=== PATIENT | male | born 1985 | race Caucasian/White ===

== ENCOUNTER → 2016-05-03 | Outpatient (CLI) | payer BC | END | disposition home or self-care (01) | LOC: MW.CHFP 15:42 | PROVIDERS: ATTEND Nurse Practitioner Family | DX: Z78.9 Other specified health status (principal) | CPT/HCPCS: 36415; 87800 ==

== ENCOUNTER 2019-06-27 16:51 | Emergency (ER) | payer BC ==
[2019-06-27] MEDS ORDERED: Alum Hydrox/Mag Hydrox/Simeth 15 ML, Metoclopramide 5 MG, Lidocaine 2% 5 ML PO ONE ×3 (17:08)
--- NOTE | 2019-06-27 17:09 | EDM.PDOC ---
ED [facility] GENERAL MEDICAL PROBLEM - General Chief Complaint: Chest Pain Stated Complaint: CHEST PAIN Time Seen by Provider: 06/27/19 16:59 Source of Information: Reports: Patient History Limitations: Reports: No Limitations - History of Present Illness INITIAL COMMENTS - FREE TEXT/NARRATIVE: This 33 year old male is admitted to the ED with a chief complaint of chest pain over the past three to four weeks. He states that the pain is sharp to dull and usually last for 60 to 90 minutes. He states over the past two days it seem to be more often. He complains of intermittent pain across his shoulders. He denies any SOB, nausea or vomiting. No sweating. He denies any history of heart problems. He denies any other symptoms or complaints. He has a possible history of hypertension but has not been treated. No history of diabetes mellitus or hyperlipidemias. chest Pain Score (Numeric/FACES): 2 - Related Data Allergies Allergy/AdvReac Type Severity Reaction Status Date / Time No Known Allergies Allergy Verified 06/27/19 17:08 Home Meds: Home Meds Pantoprazole Sodium [Protonix] 40 mg PO DAILY 30 Days #30 tablet. 06/27/19 [Rx ] ED ROS GENERAL - Review of Systems Review Of Systems: Comprehensive ROS is negative, except as noted in HPI. ED EXAM, GENERAL - Physical Exam Exam: See Below Exam Limited By: No Limitations General Appearance: Alert, WD/WN, No Apparent Distress Ears: Normal External Exam, Normal TMs Nose: Normal Inspection, Normal Mucosa Throat/Mouth: Normal Inspection, Normal Oropharynx Head: Atraumatic, Normocephalic Neck: Normal Inspection, Supple, Full Range of Motion Respiratory/Chest: No Respiratory Distress, Lungs Clear, Normal Breath Sounds, No Accessory Muscle Use Cardiovascular: Normal Peripheral Pulses, Regular Rate, Rhythm, No Edema, No JVD , No Murmur, No Rub Peripheral Pulses: 3+: Dorsalis Pedis (L), 4+: Carotid (L), Carotid (R), Radial (L), Radial (R), Dorsalis Pedis (R) GI/Abdominal: Normal Bowel Sounds, Soft, Non-Tender, No Organomegaly, No Abnormal Bruit (Male) Exam: Deferred Rectal (Males) Exam: Deferred Back Exam: Normal Inspection, Full Range of Motion. No: CVA Tenderness (L), CVA Tenderness (R) Extremities: Normal Inspection, Normal Range of Motion, Non-Tender, No Pedal Edema, Normal Capillary Refill Neurological: Alert, Oriented (times 4), CN II-XII Intact, Normal Reflexes, No Motor/Sensory Deficits Psychiatric: Normal Affect, Normal Mood Skin Exam: Warm, Dry, Intact, Normal Color, No Rash Course - Vital Signs Text/Narrative:: I reviewed all of this patients diagnostic test and his ECG. His HEART score is a 0. I discussed this with the patient as well. He will be discharged. He agrees with the discharge plan. Last Recorded V/S: Last Vital Signs Temp 97.9 F 06/27/19 16:51 Pulse 64 06/27/19 17:45 Resp 16 06/27/19 17:45 BP 118/76 06/27/19 17:45 Pulse Ox 96 06/27/19 17:45 - Orders/Labs/Meds Labs: Laboratory Tests 06/27/19 06/27/19 Range/Units 17:06 17:06 WBC 7.18 (4.0-11.0) K/uL RBC 4.92 (4.50-5.90) M/uL Hgb 14.6 (13.0-17.0) g/dL Hct 43.9 (38.0-50.0) % MCV 89.2 (80.0-98.0) fL MCH 29.7 (27.0-32.0) pg MCHC 33.3 (31.0-37.0) g/dL RDW Std Deviation 42.3 (28.0-62.0) fl RDW Coeff of Jayde 13 (11.0-15.0) % Plt Count 249 (150-400) K/uL MPV 9.50 (7.40-12.00) fL Neut % (Auto) 61.2 (48.0-80.0) % Lymph % (Auto) 28.1 (16.0-40.0) % [place] % (Auto) 7.9 (0.0-15.0) % Eos % (Auto) 2.4 (0.0-7.0) % Baso % (Auto) 0.4 (0.0-1.5) % Neut # (Auto) 4.4 (1.4-5.7) K/uL Lymph # (Auto) 2.0 (0.6-2.4) K/uL [place] # (Auto) 0.6 (0.0-0.8) K/uL Eos # (Auto) 0.2 (0.0-0.7) K/uL Baso # (Auto) 0.0 (0.0-0.1) K/uL Nucleated RBC % 0.0 /100WBC Nucleated RBCs # 0 K/uL Sodium 136 (136-148) mmol/L Potassium 4.0 (3.5-5.1) mmol/L Chloride 101 (98-107) mmol/L Carbon Dioxide 27.0 (21.0-32.0) mmol/L BUN 19 H (7.0-18.0) mg/dL Creatinine 1.1 (0.8-1.3) mg/dL Est Cr Clr Drug Dosing 100.78 mL/min Estimated GFR (MDRD) > 60.0 ml/min Glucose 91 (74-106) mg/dL Calcium 8.9 (8.5-10.1) mg/dL Total Bilirubin 0.4 (0.2-1.0) mg/dL AST 25 (15-37) IU/L ALT 52 (14-63) IU/L Alkaline Phosphatase 37 L (46-116) U/L Troponin I < 0.050 (0.000-0.056) ng/mL Total Protein 7.4 (6.4-8.2) g/dL Albumin 4.4 (3.4-5.0) g/dL Globulin 3.0 (2.6-4.0) g/dL Albumin/Globulin Ratio 1.5 (0.9-1.6) Meds: Medications Discontinued Medications Generic Name Dose Route Start Last Admin Trade Name Freq PRN Reason Stop Dose Admin Al Hydroxide/Mg Hydroxide 15 0 ml 06/27/19 17:08 06/27/19 17:16 ml/ Metoclopramide HCl 5 mg/ PO 06/27/19 17:09 1 each Lidocaine HCl 5 ml ONETIME ONE Administration Departure - Departure Time of Disposition: 17:54 Disposition: Home, Self-Care 01 Condition: Good Clinical Impression: Atypical chest pain Instructions: Nonspecific Chest Pain, Adult, [id number] Forms: ED Department Discharge Additional Instructions: Take all medications as directed. Follow up with your PCP in the next two to four days. Rest for the next 24 hours. Return to the ED if your condition gets worse or should you have any questions or concerns. The following information is given to patients seen in the emergency department who are being discharged to home. This information is to outline your options for follow-up care. We provide all patients seen in our emergency department with a follow-up referral. The need for follow-up, as well as the timing and circumstances, are variable depending upon the specifics of your emergency department visit. If you don't have a primary care physician on staff, we will provide you with a referral. We always advise you to contact your personal physician following an emergency department visit to inform them of the circumstance of the visit and for follow-up with them and/or the need for any referrals to a consulting specialist. The emergency department will also refer you to a specialist when appropriate. This referral assures that you have the opportunity for follow-up care with a specialist. All of these measure are taken in an effort to provide you with optimal care, which includes your follow-up. Under all circumstances we always encourage you to contact your private physician who remains a resource for coordinating your care. When calling for follow-up care, please make the office aware that this follow-up is from your recent emergency room visit. If for any reason you are refused follow-up, please contact the [facility] Emergency Department at and asked to speak to the emergency department charge nurse. Sepsis Event Note - Focused Exam Vital Signs: Vital Signs Temp Pulse Resp BP Pulse Ox 06/27/19 17:45 64 16 118/76 96 06/27/19 17:15 64 17 124/68 97 06/27/19 16:51 97.9 F 82 18 140/81 97 Date Exam was Performed: 06/27/19 Time Exam was Performed: 17:51
--- NOTE | 2019-06-27 17:24 | CR ---
INDICATION: CHEST PAIN INDICATION: Chest pain. TECHNIQUE: Chest 1 view. COMPARISON: None FINDINGS: Cardiovascular and mediastinum: Heart size and vasculature are normal in caliber and appearance. Mediastinum is within normal limits. Lungs and pleural space: Lungs are clear. No sign of infiltrate or mass. No sign of pleural effusion. No pneumothorax. Bones and soft tissues: No significant findings. IMPRESSION: Lungs are clear. Dictated by Pablo Gutierrez MD @ 06/27/2019 5:23:06 PM Dictated by: Pablo Gutierrez MD @ 06/27/2019 17:23:20 (Electronically Signed)
[2019-06-27 17:39] LABS: BLOOD UREA NITROGEN,BUN 19 mg/dL (7.0-18.0); CHLORIDE,CL 101 mmol/L (98-107); GLUCOSE RANDOM 91 mg/dL (74-106); SODIUM,NA 136 mmol/L (136-148)
[2019-06-27] MEDS ORDERED: Pantoprazole 40 MG Tab.CR PO SCH (18:00)
== END 2019-06-27 18:09 | disposition home or self-care (01) ==
LOC: MW.ED 16:51
DX: R07.89 Other chest pain (principal)
CPT/HCPCS: 36415; 71045; 80053; 84484; 85025; 93005; 99285; A9270; 99283

== ENCOUNTER 2019-11-22 08:06 | Observation (INO) | payer BC, OTHER ==
[2019-11-22] MEDS ORDERED: Ondansetron 4 MG/2 ML SDV IVPUSH ONE (08:22)
[2019-11-22] MEDS ORDERED: Sodium Chloride 0.9% 10 ML Syringe FLUSH PRN (08:22)
[2019-11-22] MEDS ORDERED: Sodium Chloride 0.9% 2.5 ML Syringe FLUSH PRN (08:22)
[2019-11-22] MEDS ORDERED: fentaNYL 50 MCG/ML SDV IVPUSH ONE ×2 (08:32→09:55)
--- NOTE | 2019-11-22 08:35 | EDM.PDOC ---
ED [facility] GENERAL MEDICAL PROBLEM - General Chief Complaint: Abdominal Pain Stated Complaint: abdominal pain Time Seen by Provider: 11/22/19 08:15 Source of Information: Reports: Patient History Limitations: Reports: No Limitations - History of Present Illness INITIAL COMMENTS - FREE TEXT/NARRATIVE: There is a very pleasant 33-year-old male with no past medical history presenting with abdominal pain and nausea. He states that around 6:00 this morning, he woke up feeling nauseated. He shortly thereafter developed periumbilical abdominal pain that then migrated to the right lower quadrant. Pain was initially intermittent but is now constant. Nothing makes it better or worse. No history of prior pain like this. He took a medication for constipation at home without relief. Denies any fever, chills, vomiting, hematemesis, diarrhea, bloody stools, dysuria, urinary frequency, or back/flank pain. ROS: A 10-point review of systems was negative, except as noted in the HPI (or in the ROS section of this note). Past medical history: Reviewed, no additional pertinent history. Surgical history: Reviewed in system, no additional pertinent history. Social history: Reviewed in system, no additional pertinent history. Family history: Reviewed in system, no additional pertinent history. PHYSICAL EXAM Vital signs reviewed. Nursing notes reviewed. Constitutional: Awake, alert, non-distressed. Head: Normocephalic, atraumatic. Eyes: EOMI, conjunctiva normal, no discharge, no scleral icterus. Ears, Nose, Throat: External ears and nose normal, moist oral mucosa. Cardiovascular: 2+ radial pulse, capillary refill less than 2 seconds. Pulmonary: normal work of breathing, no accessory muscle use. Abdomen/GI: Soft, moderate right lower quadrant tenderness with some guarding, nondistended, no guarding or rigidity, no masses. No CVA tenderness. Musculoskeletal: No deformities. Integumentary: Appropriate color for ethnicity, warm, dry, no pallor or jaundice, no rash. Neurologic: Alert, answering questions appropriately, normal speech, no facial droop, moving all extremities well. Psychiatric: Appropriate mood and affect, normal thought process. mid abdomen, below umbilicus Pain Score (Numeric/FACES): 8 - Related Data Allergies Allergy/AdvReac Type Severity Reaction Status Date / Time No Known Allergies Allergy Verified 11/22/19 08:17 Home Meds: Home Meds . [No Known Home Meds] 11/22/19 [History] Past Medical History HEENT History: Reports: None Cardiovascular History: Reports: Hypertension, Other (See Below) Other Cardiovascular History: states he was given blood pressure medication in the past "but im not good at taking it" Musculoskeletal History: Reports: None - Infectious Disease History Infectious Disease History: Reports: Chicken Pox, Novel Coronavirus - Past Surgical History HEENT Surgical History: Reports: Tonsillectomy Cardiovascular Surgical History: Reports: None Musculoskeletal Surgical History: Reports: Arthroscopic Knee, Other (See Below) Other Musculoskeletal Surgeries/Procedures:: R knee Social & Family History - Family History Family Medical History: Noncontributory - Tobacco Use Smoking Status *Q: Never Smoker - Caffeine Use Caffeine Use: Reports: Coffee - Recreational Drug Use Recreational Drug Use: No ED ROS GENERAL - Review of Systems Review Of Systems: See Below ED EXAM, GI/ABD - Physical Exam Exam: See Below Course - Vital Signs Text/Narrative:: Patient hemodynamically stable, afebrile, well-appearing, looks nontoxic. Differential diagnosis includes but is not limited to: appendicitis, testicular torsion, inguinal hernia (umbilical vs direct vs indirect), abdominal wall hernia, constipation, rectus abdominus muscle strain, mesenteric ischemia, cystitis, pyelonephritis, renal colic, aortic aneurysm, gastritis, mesenteric thrombus, strangulated bowel, small bowel obstruction, IBD, and many others. 0834: Ordered labs, fentanyl, Zofran, urinalysis, CT scan of the abdomen/pelvis. Suspicious for appendicitis, kidney stone less likely. NPO. 0939: Resting comfortably. CBC shows leukocytosis with neutrophilic predominance. Normal lactate. Normal electrolytes and renal function. Mild ALT and alkaline phosphatase elevations. Normal lipase. Urinalysis shows trace ketones, no blood or evidence of infection. Awaiting radiology read of CT scan. 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 Ordered IV morphine sulfate and air ertapenem. Consulted general surgeon Dr. Levy Avalos who will evaluate the patient. 1305: Dr. Avalos saw the patient in the ER. We will plan to go to the operating room for appendectomy. Given additional analgesic medications. Transferred to the OR in good condition. Last Recorded V/S: Last Vital Signs Temp 36.4 C 11/22/19 13:25 Pulse 97 11/22/19 13:25 Resp 17 11/22/19 13:25 BP 132/76 11/22/19 13:25 Pulse Ox 100 11/22/19 13:25 - Orders/Labs/Meds Orders: Active Orders 24 hr Category Date Time Status Admission Status [Patient Status] [ADT] Stat ADT 11/22/19 10:24 Active Pulse Oximetry [RC] ASDIRECTED Care 11/22/19 08:22 Active Nothing Per Oral Diet [DIET] Diet 11/22/19 Breakfast Active Acetaminophen [Ofirmev] 1,000 mg Med 11/22/19 13:16 Active Premix Bag 1 bag IV Q6H Sodium Chloride 0.9% [Saline Flush] Med 11/22/19 08:22 Active 10 ml FLUSH ASDIRECTED PRN Sodium Chloride 0.9% [Saline Flush] Med 11/22/19 08:22 Active 2.5 ml FLUSH ASDIRECTED PRN fentaNYL [Sublimaze] Med 11/22/19 13:16 Active 50 mcg IVPUSH Q5M PRN Saline Lock Insert [OM.PC] Stat Oth 11/22/19 08:23 Ordered Medication Orders Fentanyl (Sublimaze) 50 mcg IVPUSH Q5M PRN PRN Reason: Pain Acetaminophen 1,000 mg/ Premix 100 mls @ 400 mls/hr IV Q6H PRN PRN Reason: Pain Sodium Chloride (Saline Flush) 10 ml FLUSH ASDIRECTED PRN PRN Reason: Keep Vein Open Last Admin: 11/22/19 08:38 Dose: 10 ml Documented by: KATE Sodium Chloride (Saline Flush) 2.5 ml FLUSH ASDIRECTED PRN PRN Reason: Keep Vein Open Last Admin: 11/22/19 08:38 Dose: 2.5 ml Documented by: KATE Labs: Laboratory Tests 11/22/19 11/22/19 11/22/19 Range/Units 08:20 08:20 08:20 WBC 13.76 H (4.0-11.0) K/uL RBC 4.94 (4.50-5.90) M/uL Hgb 14.6 (13.0-17.0) g/dL Hct 44.2 (38.0-50.0) % MCV 89.5 (80.0-98.0) fL MCH 29.6 (27.0-32.0) pg MCHC 33.0 (31.0-37.0) g/dL RDW Std Deviation 41.6 (28.0-62.0) fl RDW Coeff of Jayde 13 (11.0-15.0) % Plt Count 223 (150-400) K/uL MPV 9.80 (7.40-12.00) fL Neut % (Auto) 85.5 H (48.0-80.0) % Lymph % (Auto) 9.2 L (16.0-40.0) % [place] % (Auto) 4.7 (0.0-15.0) % Eos % (Auto) 0.5 (0.0-7.0) % Baso % (Auto) 0.1 (0.0-1.5) % Neut # (Auto) 11.8 H (1.4-5.7) K/uL Lymph # (Auto) 1.3 (0.6-2.4) K/uL [place] # (Auto) 0.7 (0.0-0.8) K/uL Eos # (Auto) 0.1 (0.0-0.7) K/uL Baso # (Auto) 0.0 (0.0-0.1) K/uL Nucleated RBC % 0.0 /100WBC Nucleated RBCs # 0 K/uL Lactate 1.0 (0.20-2.00) mmol/L Sodium 140 (136-148) mmol/L Potassium 3.9 (3.5-5.1) mmol/L Chloride 104 (98-107) mmol/L Carbon Dioxide 26.5 (21.0-32.0) mmol/L BUN 19 H (7.0-18.0) mg/dL Creatinine 1.3 (0.8-1.3) mg/dL Est Cr Clr Drug Dosing 82.67 mL/min Estimated GFR (MDRD) > 60.0 ml/min Glucose 110 H (74-106) mg/dL Calcium 8.9 (8.5-10.1) mg/dL Total Bilirubin 0.4 (0.2-1.0) mg/dL AST 33 (15-37) IU/L ALT 75 H (14-63) IU/L Alkaline Phosphatase 40 L (46-116) U/L Total Protein 7.7 (6.4-8.2) g/dL Albumin 4.6 (3.4-5.0) g/dL Globulin 3.1 (2.6-4.0) g/dL Albumin/Globulin Ratio 1.5 (0.9-1.6) Lipase 122 (73-393) U/L Urine Color Urine Appearance Urine pH (5.0-8.0) Ur Specific [place] (1.001-1.035) Urine Protein (NEGATIVE) mg/dL Urine Glucose (UA) (NEGATIVE) mg/dL Urine Ketones (NEGATIVE) mg/dL Urine Occult Blood (NEGATIVE) Urine Nitrite (NEGATIVE) Urine Bilirubin (NEGATIVE) Urine Urobilinogen (<2.0) EU/dL Ur Leukocyte Esterase (NEGATIVE) SARS-CoV-2 RNA (KARTIK) (NEGATIVE) 11/22/19 11/22/19 Range/Units 08:31 10:27 WBC (4.0-11.0) K/uL RBC (4.50-5.90) M/uL Hgb (13.0-17.0) g/dL Hct (38.0-50.0) % MCV (80.0-98.0) fL MCH (27.0-32.0) pg MCHC (31.0-37.0) g/dL RDW Std Deviation (28.0-62.0) fl RDW Coeff of Jayde (11.0-15.0) % Plt Count (150-400) K/uL MPV (7.40-12.00) fL Neut % (Auto) (48.0-80.0) % Lymph % (Auto) (16.0-40.0) % [place] % (Auto) (0.0-15.0) % Eos % (Auto) (0.0-7.0) % Baso % (Auto) (0.0-1.5) % Neut # (Auto) (1.4-5.7) K/uL Lymph # (Auto) (0.6-2.4) K/uL [place] # (Auto) (0.0-0.8) K/uL Eos # (Auto) (0.0-0.7) K/uL Baso # (Auto) (0.0-0.1) K/uL Nucleated RBC % /100WBC Nucleated RBCs # K/uL Lactate (0.20-2.00) mmol/L Sodium (136-148) mmol/L Potassium (3.5-5.1) mmol/L Chloride (98-107) mmol/L Carbon Dioxide (21.0-32.0) mmol/L BUN (7.0-18.0) mg/dL Creatinine (0.8-1.3) mg/dL Est Cr Clr Drug Dosing mL/min Estimated GFR (MDRD) ml/min Glucose (74-106) mg/dL Calcium (8.5-10.1) mg/dL Total Bilirubin (0.2-1.0) mg/dL AST (15-37) IU/L ALT (14-63) IU/L Alkaline Phosphatase (46-116) U/L Total Protein (6.4-8.2) g/dL Albumin (3.4-5.0) g/dL Globulin (2.6-4.0) g/dL Albumin/Globulin Ratio (0.9-1.6) Lipase (73-393) U/L Urine Color YELLOW Urine Appearance CLEAR Urine pH 6.0 (5.0-8.0) Ur Specific [place] 1.025 (1.001-1.035) Urine Protein NEGATIVE (NEGATIVE) mg/dL Urine Glucose (UA) NEGATIVE (NEGATIVE) mg/dL Urine Ketones TRACE H (NEGATIVE) mg/dL Urine Occult Blood NEGATIVE (NEGATIVE) Urine Nitrite NEGATIVE (NEGATIVE) Urine Bilirubin NEGATIVE (NEGATIVE) Urine Urobilinogen 0.2 (<2.0) EU/dL Ur Leukocyte Esterase NEGATIVE (NEGATIVE) SARS-CoV-2 RNA (KARTIK) POSITIVE H (NEGATIVE) Meds: Medications Generic Name Dose Route Start Last Admin Trade Name Freq PRN Reason Stop Dose Admin Fentanyl 50 mcg 11/22/19 13:16 Sublimaze IVPUSH Q5M PRN Pain Acetaminophen 1,000 mg/ Premix 100 mls @ 400 mls/hr 11/22/19 13:16 IV Q6H PRN Pain Sodium Chloride 10 ml 11/22/19 08:22 11/22/19 08:38 Saline Flush FLUSH 10 ml ASDIRECTED PRN Administration Keep Vein Open Sodium Chloride 2.5 ml 11/22/19 08:22 11/22/19 08:38 Saline Flush FLUSH 2.5 ml ASDIRECTED PRN Administration Keep Vein Open Discontinued Medications Generic Name Dose Route Start Last Admin Trade Name Freq PRN Reason Stop Dose Admin Fentanyl 100 mcg 11/22/19 08:32 11/22/19 08:38 Fentanyl IVPUSH 11/22/19 08:33 100 mcg ONETIME ONE Administration Fentanyl 100 mcg 11/22/19 09:55 11/22/19 10:01 Fentanyl IVPUSH 11/22/19 09:56 100 mcg ONETIME ONE Administration Fentanyl Confirm 11/22/19 13:02 Sublimaze Administered 11/22/19 13:03 Dose 100 mcg .ROUTE .STK-MED ONE Glycopyrrolate Confirm 11/22/19 13:02 Robinul Administered 11/22/19 13:03 Dose 0.2 mg .ROUTE .STK-MED ONE Hydromorphone HCl 1 mg 11/22/19 11:34 11/22/19 11:50 Dilaudid IVPUSH 11/22/19 11:35 1 mg ONETIME ONE Administration Hydromorphone HCl 1 mg 11/22/19 12:51 11/22/19 12:56 Dilaudid IVPUSH 11/22/19 12:52 1 mg ONETIME ONE Administration Ertapenem 1 gm/ Sodium 50 mls @ 100 mls/hr 11/22/19 10:23 11/22/19 11:18 Chloride IV 11/22/19 10:52 Not Given ONETIME ONE Ertapenem 1 gm/ Sodium 50 mls @ 100 mls/hr 11/22/19 10:30 11/22/19 11:14 Chloride IV 11/22/19 10:52 100 mls/hr ONETIME ONE Administration Iopamidol 100 ml 11/22/19 09:45 11/22/19 09:46 Isovue Multipack-370 (76%) IVPUSH 11/22/19 09:46 100 ml ONETIME ONE Administration Ketorolac Tromethamine Confirm 11/22/19 13:02 Toradol Administered 11/22/19 13:03 Dose 30 mg .ROUTE .STK-MED ONE Lidocaine Confirm 11/22/19 13:02 Xylocaine-Mpf 2% Administered 11/22/19 13:03 Dose 5 ml .ROUTE .STK-MED ONE Midazolam HCl Confirm 11/22/19 13:02 Versed 1 Mg/Ml Administered 11/22/19 13:03 Dose 2 mg .ROUTE .STK-MED ONE Morphine Sulfate 4 mg 11/22/19 10:49 11/22/19 11:11 Morphine IVPUSH 11/22/19 10:50 4 mg ONETIME ONE Administration Ondansetron HCl 4 mg 11/22/19 08:22 11/22/19 08:38 Zofran IVPUSH 11/22/19 08:23 4 mg ONETIME ONE Administration Ondansetron HCl Confirm 11/22/19 13:02 Zofran Administered 11/22/19 13:03 Dose 4 mg .ROUTE .STK-MED ONE Propofol Confirm 11/22/19 13:02 Diprivan 20 Ml Administered 11/22/19 13:03 Dose 200 mg .ROUTE .STK-MED ONE Departure - Departure Time of Disposition: 10:33 Disposition: Still A Patient 30 Condition: Good Clinical Impression: Appendicitis Qualifiers: Appendicitis type: acute appendicitis Acute appendicitis type: unspecified acute appendicitis type Qualified Code(s): K35.80 - Unspecified acute appendicitis - Discharge Information Sepsis Event Note (ED) - Evaluation Sepsis Screening Result: No Definite Risk - Focused Exam Vital Signs: Vital Signs Temp Pulse Resp BP Pulse Ox 11/22/19 13:25 36.4 C 97 17 132/76 100 11/22/19 12:55 61 109/50 L 98 11/22/19 12:25 77 136/59 L 98 11/22/19 11:56 83 120/63 98 11/22/19 11:25 70 126/57 L 97 11/22/19 10:56 58 L 121/60 96 11/22/19 10:25 76 131/56 L 100 11/22/19 09:55 55 L 129/54 L 100 11/22/19 09:25 56 L 129/58 L 100 11/22/19 09:20 61 135/56 L 100 11/22/19 08:56 51 L 142/78 H 99 11/22/19 08:14 35.2 C L 59 L 14 133/88 99 - My Orders Last 24 Hours: My Active Orders 11/22/19 Breakfast Nothing Per Oral Diet [DIET] 11/22/19 08:22 Pulse Oximetry [RC] ASDIRECTED Sodium Chloride 0.9% [Saline Flush] 10 ml FLUSH ASDIRECTED PRN Sodium Chloride 0.9% [Saline Flush] 2.5 ml FLUSH ASDIRECTED PRN 11/22/19 08:23 Saline Lock Insert [OM.PC] Stat 11/22/19 10:24 Admission Status [Patient Status] [ADT] Stat - Assessment/Plan Last 24 Hours: My Active Orders 11/22/19 Breakfast Nothing Per Oral Diet [DIET] 11/22/19 08:22 Pulse Oximetry [RC] ASDIRECTED Sodium Chloride 0.9% [Saline Flush] 10 ml FLUSH ASDIRECTED PRN Sodium Chloride 0.9% [Saline Flush] 2.5 ml FLUSH ASDIRECTED PRN 11/22/19 08:23 Saline Lock Insert [OM.PC] Stat 11/22/19 10:24 Admission Status [Patient Status] [ADT] Stat
[2019-11-22 08:59] LABS: BLOOD UREA NITROGEN,BUN 19 mg/dL (7.0-18.0); CARBON DIOXIDE,CO2 26.5 mmol/L (21.0-32.0); CHLORIDE,CL 104 mmol/L (98-107); GLUCOSE RANDOM 110 mg/dL (74-106); LIPASE 122 U/L (73-393); POTASSIUM,K 3.9 mmol/L (3.5-5.1); SODIUM,NA 140 mmol/L (136-148)
[2019-11-22] MEDS ORDERED: Iopamidol 755 MG/ML 500 ML Multipack Bottle IVPUSH ONE (09:45)
--- NOTE | 2019-11-22 10:10 | CT ---
INDICATION: Right lower quadrant pain with clinical signs and symptoms of appendicitis. COMPARISON: None TECHNIQUE: CT examination of the abdomen and pelvis was performed following the uneventful intravenous administration of 100 cc of Isovue 370. Thin section axial images were obtained from the lung bases through the pubic symphysis. Oral contrast was not administered. Please note that all CT scans at this facility use dose modulation, iterative reconstruction, and/or weight-based dosing when appropriate to reduce radiation dose to as low as reasonably achievable. FINDINGS: LUNG BASES: The lung bases as visualized appear normal.The heart size is normal at the lung bases. LIVER/BILIARY SYSTEM:The liver is normal in size and configuration. There is no focal mass and there is no intra- or extra hepatic biliary ductal dilatation.The gall bladder appears normal. ADRENALS: Normal KIDNEYS, URETERS and BLADDER:The kidneys appear normal. No visible mass, calculus or hydronephrosis. The ureters and bladder as visualized appear normal. SPLEEN:Normal appearance. PANCREAS: Appears normal. RETROPERITONEUM and MESENTERY: There is no mass, adenopathy or aortic aneurysm. GASTROINTESTINAL SYSTEM: There is acute uncomplicated appendicitis there is a relatively large distended appendix extending from the cecum far inferiorly into the appendix on the right with surrounding inflammatory change. No collection. There is a small enhancing focus near the base of the appendix best seen on axial image 110 of 177 an on coronal image 37 of 111. This measures about 4.5 millimeters and could be a small appendiceal neoplasm. PELVIS: No mass, adenopathy or free fluid. OSSEOUS STRUCTURES and ABDOMINAL WALL: There is an age-appropriate appearance of the osseous structures.No significant abdominal wall defect. OTHER: No free fluid or free air. IMPRESSION: 1. Acute uncomplicated appendicitis. I question a small enhancing lesion at the base of the appendix measuring about 4.5 millimeters which could be neoplastic. 2. I discussed the above findings at 10:05 a.m. on November 22, 2019 with nurse practitioner Vineet on behalf of Dr. Armand Price. Please note that all CT scans at this facility use dose modulation, iterative reconstruction, and/or weight-based dosing when appropriate to reduce radiation dose to as low as reasonably achievable. Dictated by Oleg Lomeli MD @ Nov 22 2019 10:01AM Signed by Dr. Oleg Lomeli @ Nov 22 2019 10:09AM
[2019-11-22] MEDS ORDERED: Ertapenem 1 GM in Sodium Chloride 0.9% 50 ML IV ONE ×2 (10:23→10:30)
[2019-11-22] MEDS ORDERED: Morphine 4 MG/ML Syringe IVPUSH ONE (10:49)
[2019-11-22] MEDS ORDERED: HYDROmorphone 1 MG/ML Syringe IVPUSH ONE ×2 (11:34→12:51)
[2019-11-22] MEDS ORDERED: Midazolam 1 MG/ML 2 ML SDV ONE (13:02)
[2019-11-22] MEDS ORDERED: Propofol 200 MG/20 ML SDV ONE (13:02)
[2019-11-22] MEDS ORDERED: Ketorolac 30 MG/ML SDV ONE (13:02)
[2019-11-22] MEDS ORDERED: Lidocaine 2% 5 ML SDV ONE (13:02)
[2019-11-22] MEDS ORDERED: fentaNYL 100 MCG/2 ML SDV ONE (13:02)
[2019-11-22] MEDS ORDERED: Ondansetron 4 MG/2 ML SDV ONE (13:02)
[2019-11-22] MEDS ORDERED: Glycopyrrolate 0.2 MG/ML SDV ONE (13:02)
[2019-11-22] MEDS ORDERED: Acetaminophen 1,000 MG in Premix Bag 1 BAG IV PRN (13:16)
[2019-11-22] MEDS ORDERED: fentaNYL 100 MCG/2 ML SDV IVPUSH PRN (13:16)
--- NOTE | 2019-11-22 13:19 | PCM.PREANE ---
Preanesthetic Assessment - Anesthesia/Transfusion/Family Hx Anesthesia History: Prior Anesthesia Without Reaction Family History of Anesthesia Reaction: No Intubation History: Unknown - Review of Systems General: No Symptoms Pulmonary: No Symptoms Cardiovascular: No Symptoms Gastrointestinal: Abdominal Pain Neurological: No Symptoms Other: Reports: None - Physical Assessment Vital Signs: Last Vital Signs Temp 35.2 C L 11/22/19 08:14 Pulse 56 L 11/22/19 09:25 Resp 14 11/22/19 08:14 BP 129/58 L 11/22/19 09:25 Pulse Ox 100 11/22/19 09:25 Height: 5 ft 10 in Weight: 90.718 kg ASA Class: 2E Mental Status: Alert & Oriented x3 Airway Class: Mallampati = 1 Dentition: Reports: Normal Dentition Thyro-Mental Finger Breadths: 3 Mouth Opening Finger Breadths: 3 ROM/Head Extension: Full Lungs: Clear to Auscultation, Normal Respiratory Effort Cardiovascular: Regular Rate - Lab Values: Laboratory Last Values WBC 13.76 K/uL (4.0-11.0) H 11/22/19 08:20 RBC 4.94 M/uL (4.50-5.90) 11/22/19 08:20 Hgb 14.6 g/dL (13.0-17.0) 11/22/19 08:20 Hct 44.2 % (38.0-50.0) 11/22/19 08:20 MCV 89.5 fL (80.0-98.0) 11/22/19 08:20 MCH 29.6 pg (27.0-32.0) 11/22/19 08:20 MCHC 33.0 g/dL (31.0-37.0) 11/22/19 08:20 RDW Std Deviation 41.6 fl (28.0-62.0) 11/22/19 08:20 RDW Coeff of Jayde 13 % (11.0-15.0) 11/22/19 08:20 Plt Count 223 K/uL (150-400) 11/22/19 08:20 MPV 9.80 fL (7.40-12.00) 11/22/19 08:20 Neut % (Auto) 85.5 % (48.0-80.0) H 11/22/19 08:20 Lymph % (Auto) 9.2 % (16.0-40.0) L 11/22/19 08:20 [place] % (Auto) 4.7 % (0.0-15.0) 11/22/19 08:20 Eos % (Auto) 0.5 % (0.0-7.0) 11/22/19 08:20 Baso % (Auto) 0.1 % (0.0-1.5) 11/22/19 08:20 Neut # (Auto) 11.8 K/uL (1.4-5.7) H 11/22/19 08:20 Lymph # (Auto) 1.3 K/uL (0.6-2.4) 11/22/19 08:20 [place] # (Auto) 0.7 K/uL (0.0-0.8) 11/22/19 08:20 Eos # (Auto) 0.1 K/uL (0.0-0.7) 11/22/19 08:20 Baso # (Auto) 0.0 K/uL (0.0-0.1) 11/22/19 08:20 Nucleated RBC % 0.0 /100WBC 11/22/19 08:20 Nucleated RBCs # 0 K/uL 11/22/19 08:20 Lactate 1.0 mmol/L (0.20-2.00) 11/22/19 08:20 Sodium 140 mmol/L (136-148) 11/22/19 08:20 Potassium 3.9 mmol/L (3.5-5.1) 11/22/19 08:20 Chloride 104 mmol/L (98-107) 11/22/19 08:20 Carbon Dioxide 26.5 mmol/L (21.0-32.0) 11/22/19 08:20 BUN 19 mg/dL (7.0-18.0) H 11/22/19 08:20 Creatinine 1.3 mg/dL (0.8-1.3) 11/22/19 08:20 Est Cr Clr Drug Dosing 82.67 mL/min 11/22/19 08:20 Estimated GFR (MDRD) > 60.0 ml/min 11/22/19 08:20 Glucose 110 mg/dL (74-106) H 11/22/19 08:20 Calcium 8.9 mg/dL (8.5-10.1) 11/22/19 08:20 Total Bilirubin 0.4 mg/dL (0.2-1.0) 11/22/19 08:20 AST 33 IU/L (15-37) 11/22/19 08:20 ALT 75 IU/L (14-63) H 11/22/19 08:20 Alkaline Phosphatase 40 U/L (46-116) L 11/22/19 08: Total Protein 7.7 g/dL (6.4-8.2) 11/22/19 08:20 Albumin 4.6 g/dL (3.4-5.0) 11/22/19 08:20 Globulin 3.1 g/dL (2.6-4.0) 11/22/19 08: Albumin/Globulin Ratio 1.5 (0.9-1.6) 11/22/19 08: Lipase 122 U/L (73-393) 11/22/19 08:20 Urine Color YELLOW 11/22/19 08:31 Urine Appearance CLEAR 11/22/19 08:31 Urine pH 6.0 (5.0-8.0) 11/22/19 08:31 Ur Specific [place] 1.025 (1.001-1.035) 11/22/19 08:31 Urine Protein NEGATIVE mg/dL (NEGATIVE) 11/22/19 08:31 Urine Glucose (UA) NEGATIVE mg/dL (NEGATIVE) 11/22/19 08:31 Urine Ketones TRACE mg/dL (NEGATIVE) H 11/22/19 08:31 Urine Occult Blood NEGATIVE (NEGATIVE) 11/22/19 08: Urine Nitrite NEGATIVE (NEGATIVE) 11/22/19 08: Urine Bilirubin NEGATIVE (NEGATIVE) 11/22/19 08:31 Urine Urobilinogen 0.2 EU/dL (<2.0) 11/22/19 08:31 Ur Leukocyte Esterase NEGATIVE (NEGATIVE) 11/22/19 08:31 SARS-CoV-2 RNA (KARTIK) POSITIVE (NEGATIVE) H 11/22/19 10:27 - Allergies Allergies/Adverse Reactions: Allergies Allergy/AdvReac Type Severity Reaction Status Date / Time No Known Allergies Allergy Verified 11/22/19 08:17 - Blood Blood Available: No - Anesthesia Plan Pre-Op Medication Ordered: None - Acknowledgements Anesthesia Type Planned: General Anesthesia Pt an Appropriate Candidate for the Planned Anesthesia: Yes Alternatives and Risks of Anesthesia Discussed w Pt/Guardian: Yes Pt/Guardian Understands and Agrees with Anesthesia Plan: Yes PreAnesthesia Questionnaire HEENT History: Reports: None Cardiovascular History: Reports: Hypertension, Other (See Below) Other Cardiovascular History: states he was given blood pressure medication in the past "but im not good at taking it" Gastrointestinal History: Reports: Other (See Below) (acute appendicitis) Musculoskeletal History: Reports: None - Infectious Disease History Infectious Disease History: Reports: Chicken Pox, Novel Coronavirus - Past Surgical History HEENT Surgical History: Reports: Oral Surgery, Tonsillectomy Cardiovascular Surgical History: Reports: None Musculoskeletal Surgical History: Reports: Arthroscopic Knee, Other (See Below) Other Musculoskeletal Surgeries/Procedures:: R knee - SUBSTANCE USE Smoking Status *Q: Never Smoker Tobacco Use Within Last Twelve Months: Snuff/Dip Recreational Drug Use History: No - HOME MEDS Home Medications: Home Meds . [No Known Home Meds] 11/22/19 [History] - CURRENT (IN HOUSE) MEDS Current Meds: Current Medications Fentanyl (Sublimaze) 50 mcg IVPUSH Q5M PRN PRN Reason: Pain Acetaminophen 1,000 mg/ Premix 100 mls @ 400 mls/hr IV Q6H PRN PRN Reason: Pain Sodium Chloride (Saline Flush) 10 ml FLUSH ASDIRECTED PRN PRN Reason: Keep Vein Open Last Admin: 11/22/19 08:38 Dose: 10 ml Documented by: Sodium Chloride (Saline Flush) 2.5 ml FLUSH ASDIRECTED PRN PRN Reason: Keep Vein Open Last Admin: 11/22/19 08:38 Dose: 2.5 ml Documented by: Discontinued Medications Fentanyl (Fentanyl) 100 mcg IVPUSH ONETIME ONE Stop: 11/22/19 08:33 Last Admin: 11/22/19 08:38 Dose: 100 mcg Documented by: Fentanyl (Fentanyl) 100 mcg IVPUSH ONETIME ONE Stop: 11/22/19 09:56 Last Admin: 11/22/19 10:01 Dose: 100 mcg Documented by: Fentanyl (Sublimaze) Confirm Administered Dose 100 mcg .ROUTE .STK-MED ONE Stop: 11/22/19 13:03 Glycopyrrolate (Robinul) Confirm Administered Dose 0.2 mg .ROUTE .STK-MED ONE Stop: 11/22/19 13:03 Hydromorphone HCl (Dilaudid) 1 mg IVPUSH ONETIME ONE Stop: 11/22/19 11:35 Last Admin: 11/22/19 11:50 Dose: 1 mg Documented by: Hydromorphone HCl (Dilaudid) 1 mg IVPUSH ONETIME ONE Stop: 11/22/19 12:52 Last Admin: 11/22/19 12:56 Dose: 1 mg Documented by: Ertapenem 1 gm/ Sodium (Chloride) 50 mls @ 100 mls/hr IV ONETIME ONE Stop: 11/22/19 10:52 Last Admin: 11/22/19 11:18 Dose: Not Given Documented by: Ertapenem 1 gm/ Sodium (Chloride) 50 mls @ 100 mls/hr IV ONETIME ONE Stop: 11/22/19 10:52 Last Admin: 11/22/19 11:14 Dose: 100 mls/hr Documented by: Iopamidol (Isovue Multipack-370 (76%)) 100 ml IVPUSH ONETIME ONE Stop: 11/22/19 09:46 Last Admin: 11/22/19 09:46 Dose: 100 ml Documented by: Ketorolac Tromethamine (Toradol) Confirm Administered Dose 30 mg .ROUTE .STK-MED ONE Stop: 11/22/19 13:03 Lidocaine (Xylocaine-Mpf 2%) Confirm Administered Dose 5 ml .ROUTE .STK-MED ONE Stop: 11/22/19 13:03 Midazolam HCl (Versed 1 Mg/Ml) Confirm Administered Dose 2 mg .ROUTE .STK-MED ONE Stop: 11/22/19 13:03 Morphine Sulfate (Morphine) 4 mg IVPUSH ONETIME ONE Stop: 11/22/19 10:50 Last Admin: 11/22/19 11:11 Dose: 4 mg Documented by: Ondansetron HCl (Zofran) 4 mg IVPUSH ONETIME ONE Stop: 11/22/19 08:23 Last Admin: 11/22/19 08:38 Dose: 4 mg Documented by: Ondansetron HCl (Zofran) Confirm Administered Dose 4 mg .ROUTE .STK-MED ONE Stop: 11/22/19 13:03 Propofol (Diprivan 20 Ml) Confirm Administered Dose 200 mg .ROUTE .STK-MED ONE Stop: 11/22/19 13:03
[2019-11-22] MEDS ORDERED: Octyl 2-Cyanoacrylate 1 Tube ONE (14:21)
[2019-11-22] MEDS ORDERED: Bupivacaine 0.5% 10 ML SDV ONE (14:21)
[2019-11-22] MEDS ORDERED: Ondansetron 4 MG/2 ML SDV IVPUSH PRN (15:36)
--- NOTE | 2019-11-22 15:36 | PCM.OPNOTE ---
- General Post-Op/Procedure Note Date of Surgery/Procedure: 11/22/19 Operative Procedure(s): Laparoscopic appendectomy Findings: inflamed appendix. Dictation Number #[id number] Pre Op Diagnosis: acute appendicitis Post-Op Diagnosis: acute appendicitis Anesthesia Technique: General ET Tube Primary Surgeon: Levy Avalos Pathology: appendix EBL in mLs: 5 Complications: None Condition: Stable
--- NOTE | 2019-11-22 16:19 | PCM.POSTAN ---
POST ANESTHESIA ASSESSMENT - MENTAL STATUS Mental Status: Alert, Oriented - VITAL SIGNS Vital Signs: Last Vital Signs Temp 37 C 11/22/19 15:52 Pulse 66 11/22/19 16:13 Resp 12 11/22/19 16:13 BP 126/68 11/22/19 16:13 Pulse Ox 100 11/22/19 16:13 - RESPIRATORY Respiratory Status: Respiratory Rate WNL, Airway Patent, O2 Saturation Stable - CARDIOVASCULAR CV Status: Pulse Rate WNL, Blood Pressure Stable - GASTROINTESTINAL GI Status: No Symptoms - PAIN Pain Score: 0 - POST OP HYDRATION Hydration Status: Adequate & Stable - OBSERVATIONS Free Text/Narrative:: No anesthesia problems
--- NOTE | 2019-11-22 17:30 | HP ---
DATE OF : 1985 PRIMARY CARE PHYSICIAN: None PCP HISTORY OF PRESENT ILLNESS: The patient is a pleasant 33-year-old gentleman who woke up around 4:30 this morning with abdominal pain and nausea. He states the pain has gotten worse throughout the day. It has migrated more to the right lower quadrant. Pain does not radiate anywhere. The patient denies any fevers or chills. PAST MEDICAL HISTORY: The patient denies any. CURRENT HOME MEDICATIONS: The patient denies any. PAST SURGICAL HISTORY: 1. Tonsillectomy. 2. Knee surgery. ALLERGIES: No known drug allergies. FAMILY HISTORY: The patient states he has some distant family members with heart disease. SOCIAL HISTORY: The patient states that he used to chew but now does nicotine gum. Denies any illicit drug use. REVIEW OF SYSTEMS: A 12-point review of systems was done and was negative except for what is in the HPI. CARDIAC: The patient says occasionally had some chest pain in the past. He says he has been worked up. He says it is more of a burning sensation. He says he had stress done, that was normal. He has not had this pain for multiple months. RESPIRATORY: The patient says he did have COVID. The patient denies having any symptoms. He says he was tested because he had an exposure. It was positive. He says he will be out of isolation tomorrow according to the State. He has had no fevers, chills, or shortness of breath or any symptoms for 10 days. PHYSICAL EXAMINATION: GENERAL: The patient is lying comfortably in hospital bed. He is alert and oriented, in no acute distress. VITAL SIGNS: Temperature is 95.3, heart rate is 56, saturating 100% on room air, and blood pressure is 129/58. HEENT: Head is normocephalic and atraumatic. Mouth: Mask is on. HEART: Regular rhythm. No murmur appreciated. LUNGS: Clear to auscultation bilaterally. No rhonchi or wheezing heard. ABDOMEN: Soft and nondistended. He is tender at McBurney's point with some guarding and rebound tenderness with localized peritonitis in the right lower quadrant. EXTREMITIES: No edema. NEUROLOGIC: Grossly, no motor or neurologic deficits noted. LABORATORY DATA: White cell count is 13.76, hemoglobin is 14.6, and platelet count is 223. Lactic acid is 1. Sodium is 140, potassium 3.9, chloride 104, BUN 19, and creatinine 1.3. IMAGING: I did look at imaging and looked at the radiologist's report, which showed likely acute on complicated appendicitis. There is a question of a small enhancing lesion in the appendix. The appendix does show some surrounding inflammatory changes. ASSESSMENT AND PLAN: This is a pleasant 33-year-old gentleman with acute appendicitis. I did go over with the patient what appendix was and went over risks, goals, and alternatives to procedure. Risks include but are not limited to bleeding, infection, abscess formation, failure of staple line, hernia formation, need to convert to open, or this could be something other than appendicitis. Also did briefly go over with the patient that radiologist mentioned a lesion in the appendix. We went over that we would take this out, but depending on what we find, he might need more surgery in the future. All the patient's questions were answered. He already received antibiotics. I did talk to manager solar and anesthesiologist. They are okay with doing his case even though he is still under isolation until tomorrow. The patient has been asymptomatic and no symptoms for at least 10 days. No fevers. JANNIE / JOELLE /[id number] MTDRamone
[2019-11-22] MEDS: Acetaminophen/HYDROcodone 325-5 MG Tab PO PRN ×2 (17:39→22:58)
--- NOTE | 2019-11-22 18:07 | OR ---
SURGEON: CHELITA MORFIN MD DATE OF PROCEDURE: 11/22/2019 PREOPERATIVE DIAGNOSIS: Acute appendicitis. POSTOPERATIVE DIAGNOSIS: Acute appendicitis. PROCEDURE PERFORMED: Laparoscopic appendectomy. PRIMARY SURGEON: Chelita Morfin MD ANESTHESIA: General. ESTIMATED BLOOD LOSS: 5 mL. COMPLICATIONS: None. SPECIMEN: Appendix. REASON FOR PROCEDURE: The patient is a pleasant -[id number]-uld gentleman who early this morning woke up with abdominal pain and nausea that went to his right lower quadrant. He had a CT scan, which showed appendix with some inflammation around it and an elevated white cell count. I did go over with the patient risks, goals, and alternatives to the surgery. Risks include, but not limited to, bleeding, infection, need to convert to open, failure of staple line, injury to nearby structures, hernia formation. The patient understands. I also went over briefly that radiologist saw lucency in the appendix, which could be potentially a fecalith or maybe even a neoplasm. The patient understands that if it is a neoplasm, potentially he might need more surgery in the future. All the patient's questions were answered, and he wants to go through with the surgery. PROCEDURE NARRATIVE: The patient was brought to the OR. He was prepped and draped in usual sterile fashion. SCDs were placed. Valles catheter placed. He did receive antibiotics in the ER. After a time-out was performed, an infraumbilical incision was made. Now, Fior was used to grasp the base of the appendix stalk and elevate the fascia. Now, Veress needle was placed. Location was confirmed by pulling back on the syringe and no succus or blood came back. Positive drop test. Now, insufflation was begun and pneumoperitoneum was established. Now, a 5 mm trocar with a 5 mm camera in it was placed under direct visualization. The abdomen was inspected. Now, another 5 mm trocar was placed in the suprapubic area and a 12 mm trocar was placed in the left lower abdomen. The patient was placed in a head down position, airplaned towards myself. The appendix did have a slight bluish hue to it and it was firm and distended. There were no signs of peggy perforation though. Mesoappendix was taken with Harmonic scalpel. Now, the appendix was removed at a place where it attached to the cecum. This was removed with a blue load linear stapler. The appendix was removed into the Endo Catch bag. Now, operative site was again inspected. Staple line appeared intact. There was good hemostasis. The mesoappendix also had good hemostasis. Some minimal suction and irrigation were done. Now, using a cone device, the 12 mm trocar was closed with a 0 Vicryl stitch. Pneumoperitoneum was released. Now, other two 5 mm trocars were removed. All the trocar sites were then closed with a 4-0 Monocryl and Dermabond. At the end of the case, sponge and needle counts were correct. The patient will recover in the OR since he just has one more day of isolation since he had tested positive for COVID 10 days ago. He has been asymptomatic for 10 days with no fever. JANNIE LAI /[id number]
[2019-11-22] MEDS: HYDROmorphone 2 MG/ML Syringe IVPUSH PRN (19:31)
[2019-11-22] MEDS: Lactated Ringers 1,000 ML IV SCH (19:43)
[2019-11-23] MEDS: HYDROmorphone 2 MG/ML Syringe IVPUSH PRN (00:25)
[2019-11-23] MEDS: Acetaminophen/HYDROcodone 325-5 MG Tab PO PRN ×2 (03:20→08:03)
[2019-11-23] MEDS: Lactated Ringers 1,000 ML IV SCH (03:59)
--- NOTE | 2019-11-23 08:13 | PCM48HPAN ---
Post Anesthesia Note - EVALUATION WITHIN 48HRS OF ANESTHETIC Vital Signs in Normal Range: Yes Patient Participated in Evaluation: Yes Respiratory Function Stable: Yes Airway Patent: Yes Cardiovascular Function Stable: Yes Hydration Status Stable: Yes Pain Control Satisfactory: Yes (Reports adquate pain management, currently 05/20) Nausea and Vomiting Control Satisfactory: Yes (Eating breakfast, denies nausea) Mental Status Recovered: Yes Vital Signs: Last Vital Signs Temp 36.5 C 11/23/19 03:19 Pulse 83 11/23/19 03:19 Resp 16 11/23/19 03:19 BP 124/65 11/23/19 03:19 Pulse Ox 98 11/23/19 03:19 - COMMENTS/OBSERVATIONS Free Text/Narrative:: Has been up walking to restroom, feels stable.
[2019-11-23] MEDS ORDERED: FLU Vacc QS2020-21 36MOS UP/PF 60 MCG/0.5 ML Syringe IM ONE (09:00)
--- NOTE | 2019-11-23 17:08 | PN ---
SUBJECTIVE: The patient is seen this morning. He is doing well. He is postop day 1 from a laparoscopic appendectomy. The patient states he is feeling good. He says he is much better than he did yesterday before the surgery. He says he has some very minimal incisional tenderness, but otherwise feeling pretty good. He has tolerated his food, and he says he is passing flatus and has urinated. He feels ready to go home. OBJECTIVE: GENERAL: The patient is sitting comfortably in hospital bed. He is alert and oriented, in no acute distress. VITAL SIGNS: Temperature is 97.5, heart rate is 79, blood pressure 121/65, saturating 97% on room air. ABDOMEN: Soft, nondistended. Incision is all well healed. Dermabond in place. No signs of infection. Very minimal incisional tenderness. ASSESSMENT AND PLAN: This is a pleasant 33-year-old gentleman, postop day 1 from laparoscopic appendectomy. I did go over the surgery with the patient, and I answered his questions. The patient will be discharged later today with followup with me in clinic. I did go over with the patient discharge instructions including he may shower, but he should keep his wounds clean and dry. The Dermabond will peel off on its. The patient may have food as tolerated. He should call my clinic if he has any fevers, chills, nausea, or vomiting or has any questions about the procedure. Otherwise, I will see him again in 2 weeks. JANNIE / JOELLE /[id number] ISIDRA
== END 2019-11-23 09:15 | disposition home or self-care (01) ==
LOC: MW.ED 08:06 → MW.SDS 13:34 → MW.MS 15:36
PROVIDERS: ADMIT Surgery; ATTEND Surgery
DX: K35.80 Unspecified acute appendicitis (principal); I10 Essential (primary) hypertension; Z01.812 Encounter for preprocedural laboratory examination; Z20.828 Contact with and (suspected) exposure to other viral communicable diseases; Z98.890 Other specified postprocedural states
CPT/HCPCS: 44970; 74177; 80053; 81003; 83605; 83690; 85025; 87635; 88304; 90471; 90686; 96365; 96375; 96376; 99285; A9270; G0378; J1170; J1335; J1885; J2001; J2250; J2270; J2405; J2704; J3010; J3490; J7050; J7120; Q9967; 99284; G0008; U0002